=== PATIENT | male | born 1985 | race Caucasian/White ===

== ENCOUNTER 2019-06-25 12:08 | Emergency (ER) | payer BC, SELFPAY ==
[2019-06-25 12:24] VITALS: BP 130/92; PULSE 58; RESP 18; TEMP 36.4; O2SAT 100
--- NOTE | 2019-06-25 12:26 | ED.URI ---
HPI - URI/Sore Throat General Chief Complaint: Upper Respiratory Infection Stated Complaint: sore throat Time Seen by Provider: 06/25/19 12:42 Source: patient and RN notes reviewed Mode of arrival: ambulatory Limitations: no limitations History of Present Illness HPI Narrative: A 33 y/o male, smokes e-cigarettes, presents to the with a constant sore throat for the past 4 days. He reports associated clear rhinorrhea, voice changes, and a lt ear ache. 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 He denies any fevers, cough, wheezes, SOB, or any other medical complaints at this time. MD elicited complaint: sore throat Onset (ago): day(s) (4) Consistency: constant Context: sick contacts Associated symptoms: voice changes, rhinorrhea (clear) and ear pain (lt) Related Data Allergies Allergy/AdvReac Type Severity Reaction Status Date / Time No Known Allergies Allergy Verified 06/25/19 12:25 Review of Systems Review of Systems: Narrative: General/Constitutional: No weight loss,fever Eyes: N0: Redness,discharge Ears/Nose/Throat: No: Epistaxis,ear discharge. Reports a sore throat, clear rhinorrhea, lt ear ache, and voice changes. Respiratory: Denies: Hemoptysis, cough, wheezes, or SOB. Gastrointestinal: No Vomiting, Bleeding-rectal Skin: No Lumps, eruption Neurologic: No Focal Weakness,Sz Hematologic: Denies: Petechiae/Purpura Psychiatric: No: Suicida ideationl All Other Systems: Reviewed and Negative PMFSH Past Medical History Medical History (Updated 06/25/19 @ 12:53 by Bc Hanson MD) Medical history unknown Surgical History Surgical History (Updated 06/25/19 @ 12:50 by Jesus Reyes) Surgical history unknown Social History Social History (Updated 06/25/19 @ 12:50 by Jesus Reyes) Smoking status: Current every day smoker Tobacco type: e-cigarettes Gender identity (if verbalized by the patient): Male Exam Narrative: Exam Narrative: General Appearance: Well appearing, Well nourished EYE: PERRLA, Conjunctiva clear Ears: Auditory canal normal, TM normal Nose: Rhinorrhea, Mucousal erythema Mouth/Throat: MM moist, Uvula midline, Pharyngeal erythema Neck: Supple, No adenopathy Respiratory: No respiratory distress, Breath sounds equal, Clear to auscultation Cardiovascular: RRR, No JVD Musculoskeletal: Non tender, Normal strength Skin: Warm, Dry Neurological: A&O x3, CN II-12 intact Psychiatric: Normal mood, Normal affect Course Vital Signs Vital signs: Vital Signs Temperature 97.6 F 06/25/19 12:24 Pulse Rate 58 L 06/25/19 12:24 Respiratory Rate 18 06/25/19 12:24 Blood Pressure 130/92 H 06/25/19 12:24 Pulse Oximetry 100 06/25/19 12:24 Temperature 97.6 F 06/25/19 12:24 Pulse Rate 58 L 06/25/19 12:24 Respiratory Rate 18 06/25/19 12:24 Blood Pressure 130/92 H 06/25/19 12:24 Pulse Oximetry 100 06/25/19 12:24 MDM - URI/Sore Throat Lab Data Labs: Strep Screen Presumptive Negative *(Reference Range: Negative)* Discharge Plan Discharge Clinical Impression: Pharyngitis Qualifiers: Pharyngitis/tonsillitis etiology: unspecified etiology Qualified Code(s): J02.9 - Acute pharyngitis, unspecified Patient Disposition: Home, Self-Care Condition: Stable Instructions: Antibiotic Form, Pharyngitis (ED) Prescriptions: New Lidocaine Viscous 2 % solution 5 ml MUCOUS MEM QID PRN (Reason: pain) Qty: 100 RF: 0 codeine-guaifenesin 10-100 mg/5 mL liquid 7.5 ml PO Q6H PRN (Reason: cough) Qty: 118 RF: 0 cefuroxime axetil 500 mg tablet 500 mg PO Q12H Qty: 14 RF: 0 Interventions: Discharge Disposition Last Done: 06/25/19 12:55 Follow-up/Referrals: UNKNOWN,DOCTOR [Primary Care Provider] - Stand Alone Forms: Work/School Release IP Discharge Date/Time: 06/25/19 12:58
== END 2019-06-25 12:58 | disposition home or self-care (01) ==
PROVIDERS: Emergency Provider Emergency Medicine
DX: J02.9 Acute pharyngitis, unspecified (principal); F17.200 Nicotine dependence, unspecified, uncomplicated
CPT/HCPCS: 87081; 87880; 99203; G0463

== ENCOUNTER 2020-06-12 11:27 | Emergency (ER) | payer BC, SELFPAY ==
--- NOTE | ~2020-06-12 | CT_ITS ---
EXAMINATION: CT abdomen pelvis wo con EXAM DATE: 06/12/2020 12:37 INDICATION: Abd pain, left flank pain, hematuria. TECHNIQUE: Spiral CT of the abdomen and pelvis was performed without contrast. Axial, coronal and sag ittal images were reviewed. The dose-length product (DLP) for this examination was 414.66 mGy-cm. T he exposure was tailored according to patient size (auto mA exposure control), and iterative reconstr uction (ASIR) was used as additional dose reduction technique. There is no prior study for compariso n. FINDINGS: There is no nephrolithiasis or hydronephrosis. The prostate is unremarkable. Mild diffus e bladder wall thickening, could indicate chronic cystitis. Acute cystitis not excludable. The liver , spleen, adrenal glands and pancreas are unremarkable. Gallbladder is unremarkable. No biliary obs truction. There is no retroperitoneal or pelvic lymphadenopathy. Tiny umbilical fat-containing her joel. There are no findings to suggest appendicitis. The stomach and small bowel are unremarkable. There is expected amount of colonic stool. No free intraperitoneal gas. The heart is normal in size. T here are no pericardial or pleural effusions. The lung bases are unremarkable. There are no osteobl astic or osteolytic lesions identified. IMPRESSION: Mild diffuse bladder wall thickening could indicate acute or chronic cystitis. Reviewed, dictated and finalized at location A. OGRAPHER LITHOGRAPHIC IMPRESSION: Mild diffuse bladder wall thickening could indicate acute or chroni c cystitis.
--- NOTE | ~2020-06-12 | XR_ITS ---
EXAMINATION: XR chest 2V EXAM DATE: 06/12/2020 12:03 INDICATION: Chest pain under left breast radiating into back. TECHNIQUE: Frontal and lateral projections of the chest obtained and reviewed. There is no prior odessa dy for comparison. FINDINGS: The lungs are clear. There are no pleural effusions. The cardiomediastinal silhouette is within normal limits. There is no pneumothorax suspected. The bones and soft tissues are unremarkab le. IMPRESSION: Normal chest x-ray exam. Reviewed, dictated and finalized at location A. UMER IMPRESSION: Normal chest x-ray exam.
[2020-06-12 11:29] VITALS: BP 138/96; PULSE 73; RESP 20; TEMP 36.8; O2SAT 98
[2020-06-12 11:42] LABS: Basophils Percent Auto 0.2 % (0.2-1.2); Eosinophils Absolute Auto 0.1 K/mm3 (0-0.3); Eosinophils Percent Auto 1.1 % (0-4.4); Hematocrit 44.9 % (42.0-52.0); Hemoglobin 15.5 g/dL (14.0-18.0); Immature Granulocyte Absolute 0.03 K/mm3 (0.00-0.031); Immature Granulocyte Percent A 0.3 % (0-0.5); Lymphocytes Absolute Auto 0.66 K/mm3 (0.9-3.2); Lymphocytes Percent Auto 7.4 % (18.3-44.2); Mean Corpuscular HGB Conc 34.5 g/dl (32-36); Mean Corpuscular Hemoglobin 30.8 pg (26-34); Mean Corpuscular Volume 89.1 fl (80-100); Mean Platelet Volume 10.5 fl (7.4-10.4); Monocytes Absolute Auto 0.4 K/mm3 (0.1-0.6); Monocytes Percent Auto 4.4 % (2.6-8.5); Neutrophils Absolute Auto 7.7 K/mm3 (1.3-6.7); Neutrophils Percent Auto 86.6 % (45.5-73.1); Platelet Count Result 172 k/mm3 (150-375); Red Blood Count 5.04 M/mm3 (4.6-6.20); Red Cell Distribution Width 12.6 % (11.5-14.5); White Blood Count 8.9 K/mm3 (4.5-10.0)
--- NOTE | 2020-06-12 11:45 | ECG_ITS ---
Measurements Intervals [place] Rate: 76 P: 71 WI: 126 QRS: 76 QRSD: 88 T: 46 QT: 363 QTc: 410 Interpretive Statements SINUS RHYTHM NORMAL ECG Electronically Signed On 06-12-2020 12:04:52 BROADCAST MAINTENANCE TECHNICIAN by Gregg Brooks D.O.
--- NOTE | 2020-06-12 11:52 | ED.ABDPAIN ---
HPI - Abdominal Pain General Chief Complaint: Abdominal Pain Stated Complaint: abd pain Time Seen by Provider: 06/12/20 11:30 Source: patient Mode of arrival: ambulatory Limitations: no limitations History of Present Illness HPI narrative: This is a 34-year-old male that presents the emergency department for epigastric discomfort since yesterday. Reports the pain is a pressure in nature. He does have history of reflux. He did try to take Pepcid and omeprazole yesterday with little relief. Associated with nausea and vomiting. Does also report a couple episodes of diarrhea this morning. Also reports left-sided flank pain. Denies fever, cough, shortness of breath, dysuria, hematuria. Related Data Home Medications Medication Instructions Recorded Confirmed No Home Medications 06/12/20 06/12/20 Allergies Allergy/AdvReac Type Severity Reaction Status Date / Time No Known Allergies Allergy Verified 06/12/20 11:34 Review of Systems Review of Systems: Narrative: CONSTITUTIONAL: Denies fever CARDIOVASCULAR: Reports chest pain. Denies edema. RESPIRATORY: Denies cough or dyspnea. GASTROINTESTINAL: Reports abdominal pain, nausea, vomiting, and diarrhea. GENITOURINARY: Denies dysuria or hematuria. MUSCULOSKELETAL: Reports back pain All systems reviewed & are unremarkable except as noted in HPI and below PMFSH Past Medical History Medical History (Updated 06/12/20 @ 12:48 by Denisse Hood PA-C) No active medical problems Surgical History Surgical History (Updated 06/25/19 @ 12:50 by Jesus Reyes) Surgical history unknown Social History Social History (Updated 06/12/20 @ 11:54 by Denisse Hood PA-C) Smoking status: Current every day smoker Tobacco type: e-cigarettes/vaping Substance use: current Substance use type: marijuana Gender identity (if verbalized by the patient): Male Exam Narrative: Exam Narrative: GENERAL: Well-appearing, well-nourished, and in no acute distress. HEAD: Normocephalic, atraumatic. EYES: EOMI. ENT: Mucous membranes moist. Oropharynx without tonsillar hypertrophy exudate or other lesions. NECK: Supple. No adenopathy or masses. No carotid bruits or JVD CHEST: Clear to auscultation. No respiratory distress. No wheezes rales or rhonchi HEART: Regular rate and rhythm. No murmur heard. Normal peripheral pulses. ABDOMEN: Soft, nondistended, normal active bowel sounds. Mild tenderness to palpation in epigastrium, without guarding. EXTREMITIES: Normal range of motion. No edema. SKIN: Warm, dry, no rash. NEURO: No focal deficits. Alert and oriented x3. PSYCH: Normal mood and affect Course Vital Signs Vital signs: Vital Signs Temperature 98.2 F 06/12/20 11:29 Pulse Rate 73 06/12/20 11:29 Respiratory Rate 20 06/12/20 11:29 Blood Pressure 138/96 H 06/12/20 11:29 Pulse Oximetry 98 06/12/20 11:29 Temperature 98.2 F 06/12/20 11:29 Pulse Rate 73 06/12/20 11:29 Respiratory Rate 20 06/12/20 11:29 Blood Pressure 138/96 H 06/12/20 11:29 Pulse Oximetry 98 06/12/20 11:29 MDM - Abdominal Pain MDM Narrative Medical decision making narrative: Patient presents to the ER for epigastric abdominal pain, nausea and vomiting. Also reporting left flank pain. He is afebrile and nontoxic-appearing. CBC and metabolic panel without concerning findings. Lipase is normal. UA without evidence of infection, does show a few red blood cells. CT scan abdomen and pelvis shows mild diffuse bladder wall thickening which could indicate acute or chronic cystitis. Does not appear to be acute as his UA has no signs of infection. His chest x-ray is clear. EKG is without concerning changes, and his baseline troponin is negative. Patient was updated on case findings. Reports improvement with IV fluids, Tylenol and Protonix. He was instructed to follow-up with his primary care doctor. He was given warnings to return to the ER Lab Data Attestation: I reviewed the patient'
[2020-06-12 11:54] LABS: Anion Gap 10 mmol/L (8-16); Blood Urea Nitrogen 17 mg/dL (9-20); Calcium 9.1 mg/dL (8.4-10.2); Carbon Dioxide 23 mmol/L (22-30); Chloride 107 mmol/L (98-107); Estimated CRCL calculation 103 ml/min; Estimated Glomerular Filt Rate > 60; Glucose 98 mg/dL (75-110); Potassium 4.3 mmol/L (3.4-5.0); Sodium 140 mmol/L (137-145)
[2020-06-12 12:02] LABS: Alanine Aminotransferase 26 U/L (4-50); Albumin Level 4.7 g/dL (3.5-5.1); Alkaline Phosphatase 49 U/L (38-126); Aspartate Amino Transferase 40 U/L (17-59); Bilirubin,Total 0.9 mg/dL (0.2-1.3); Lipase 49 U/L (23-300)
[2020-06-12 12:06] LABS: Add Urine Microscopic? YES; Appearance Urine Clear (Clear); Bilirubin Urine Negative (Negative); Blood Urine Negative (Negative); Color Urine Yellow (Yellow); Glucose Urine UA Negative (Negative); Ketones Urine 1+ mg/dL (Negative); Leukocyte Esterase Ur Negative LEU/UL (Negative); Mucus Urine Rare /lpf; Nitrate Urine Negative (Negative); Protein Urine 1+ mg/dL (Negative); Specific Grav Ur 1.026 (1.001-1.035); Squamous Epithelial Cell Urine Rare /hpf (Few); Urobilinogen Urine Negative mg/dL (<2.0); WBC Urine 0-3 /hpf
[2020-06-12 12:11] LABS: Troponin I < 0.012 ng/mL (0.000-0.034)
[2020-06-12 12:28] LABS: Prothrombin Time 13.7 Seconds (11.1-14.7)
[2020-06-12 12:29] LABS: Partial Thromboplastin Time 28.6 SECONDS (22.3-36.8)
[2020-06-12] MEDS: SODIUM CHLORIDE 0.9% IV 1,000 ML 999 ML IV CONT (12:38)
[2020-06-12] MEDS: PANTOPRAZOLE SODIUM IV 40 MG VIAL IV PUSH (12:38)
== END 2020-06-12 13:39 | disposition home or self-care (01) ==
PROVIDERS: Physician Assistant; Emergency Provider Emergency Medicine
DX: K52.9 Noninfective gastroenteritis and colitis, unspecified (principal); K21.9 Gastro-esophageal reflux disease without esophagitis; F17.290 Nicotine dependence, other tobacco product, uncomplicated; R93.41 Abnormal radiologic findings on diagnostic imaging of renal pelvis, ureter, or bladder
CPT/HCPCS: 36415; 71046; 74176; 80048; 80076; 81001; 83690; 84484; 85025; 85610; 85730; 93005; 96361; 96374; 96375; 99284; C9113; J0131; J7030

== ENCOUNTER 2022-12-21 19:30 | Emergency (ER) | payer BC, SELFPAY ==
[2022-12-21 19:56] VITALS: BP 134/76; PULSE 62; RESP 20; TEMP 36.7; O2SAT 100
[2022-12-21 20:52] LABS: Basophils Percent Auto 0.3 % (0.2-1.2); Eosinophils Absolute Auto 0.3 K/mm3 (0-0.3); Eosinophils Percent Auto 2.6 % (0-4.4); Hematocrit 42.7 % (42.0-52.0); Hemoglobin 14.5 g/dL (14.0-18.0); Immature Granulocyte Absolute 0.05 K/mm3 (0.00-0.031); Immature Granulocyte Percent A 0.5 % (0-0.5); Lymphocytes Absolute Auto 2.11 K/mm3 (0.9-3.2); Lymphocytes Percent Auto 20.8 % (18.3-44.2); Mean Corpuscular Hemoglobin 30.3 pg (26-34); Mean Corpuscular Volume 89.3 fl (80-100); Mean Platelet Volume 10.5 fl (7.4-10.4); Monocytes Absolute Auto 0.5 K/mm3 (0.1-0.6); Monocytes Percent Auto 5.1 % (2.6-8.5); Neutrophils Absolute Auto 7.2 K/mm3 (1.3-6.7); Neutrophils Percent Auto 70.7 % (45.5-73.1); Platelet Count Result 184 k/mm3 (150-375); Red Blood Count 4.78 M/mm3 (4.6-6.20); Red Cell Distribution Width 12.7 % (11.5-14.5); White Blood Count 10.2 K/mm3 (4.5-10.0)
[2022-12-21 20:59] LABS: Appearance Urine Turbid (Clear); Bacteria Urine None Seen /hpf; Bilirubin Urine Negative (Negative); Blood Urine Negative (Negative); Color Urine Yellow (Yellow); Glucose Urine UA Negative (Negative); Ketones Urine Negative (Negative); Leukocyte Esterase Ur Negative LEU/UL (Negative); Nitrate Urine Negative (Negative); Non Pathogenic Casts 0-2; Protein Urine Negative (Negative); RBC Urine 0-2 /hpf (0-2); Squamous Epithelial Cell Urine None seen /hpf (Few); Urobilinogen Urine 0.2 mg/dL (<2.0); WBC Urine 0-5 /hpf; pH Urine 7.5 (5.0-9.0)
[2022-12-21 21:02] LABS: Alanine Aminotransferase 23 U/L (6-50); Albumin Level 4.7 g/dL (3.5-5.1); Alkaline Phosphatase 54 U/L (38-126); Anion Gap 8 mmol/L (8-16); Aspartate Amino Transferase 30 U/L (17-59); Bilirubin,Total 0.4 mg/dL (0.2-1.3); Blood Urea Nitrogen 22 mg/dL (9-20); Calcium 9.6 mg/dL (8.4-10.2); Carbon Dioxide 29 mmol/L (22-30); Chloride 102 mmol/L (98-107); Estimated CRCL calculation 90 ml/min; Estimated Glomerular Filt Rate > 60; Glucose 93 mg/dL (65-110); Lipase 87 U/L (23-300); Potassium 4.2 mmol/L (3.4-5.0); Sodium 139 mmol/L (137-145)
[2022-12-21 21:11] LABS: Add Urine Microscopic? YES
--- NOTE | 2022-12-21 22:05 | PC.NURSE ---
pt ambulated to intake desk and states he is going to a different hospital.
== END 2022-12-21 22:29 | disposition left against medical advice (07) ==
PROVIDERS: Emergency Provider Emergency Medicine
DX: R10.11 Right upper quadrant pain (principal)
CPT/HCPCS: 36415; 80053; 81001; 83690; 85025; 99199